=== PATIENT | male | born 1975 | race Two or more races ===

== ENCOUNTER 2018-06-22 10:32 | Emergency (ER) | payer SELFPAY ==
[~2018-06-22] VITALS: Ht 165.1 cm; Wt 65.0 kg
[2018-06-22] MEDS ORDERED: ONDANSETRON 2MG/ML, 2ML ONE (11:15)
[2018-06-22] MEDS ORDERED: MORPHINE SULFATE 4 MG/ML, 1ML ONE (11:15)
--- NOTE | 2018-06-22 11:24 | NUR ---
First contact with patient: Patient arrives with spouse with partial amputation right great toe, toe being held in place by shoelace. Shoelace removed by Dr. Velazquez, gauze dressing place by Dr. Velazquez with apparent hemostasis achieved. Plan of care discussed with patient and his , verbalize understanding. Patient states he is comfortable speaking Romansh. IV started, patient medicated for pain as ordered and documented, call ko place within reach with instruction for use. Continuous blood pressure and SPO2 monitoring in place.
[2018-06-22] MEDS ORDERED: morphine SULFATE 10 MG/ML, 1ML IVPush ONE (11:30)
[2018-06-22] MEDS ORDERED: DIPH,PERTUSS(ACELL),TET VAC/PF 0.5 ML IM-VACC ONE ×2 (11:30→11:38)
[2018-06-22] MEDS ORDERED: ONDANSETRON 2MG/ML, 2ML IVPush ONE (11:30)
--- NOTE | 2018-06-22 11:49 | NUR ---
Patient reports he is comfortable after pain medication administration, does not appear to be in acute distress. Gauze dressing with small amount of bloody drainage. Patient does not have any requests at this time. Call ko within reach.
[2018-06-22] MEDS ORDERED: CEFEPIME 2 GM in DEXTROSE 5% 100 ML IV ONE (12:00)
--- NOTE | 2018-06-22 12:05 | NUR ---
Cefepime not available in ER medicell, requested from pharmacy at this time.
--- NOTE | 2018-06-22 12:30 | NUR ---
Antibiotics infusing, call ko within reach, no complaints or requests at this time. Patient states the last time he ate was yesterday at 1500 and last drink was finished this morning at 1000.
[2018-06-22] MEDS ORDERED: LIDOCAINE 1%, 10ML INFIL ONE (13:00)
[2018-06-22] MEDS ORDERED: LIDOCAINE-MPF 1%, 5ML ONE (13:00)
[2018-06-22 14:07] VITALS: BP 131/84
--- NOTE | 2018-06-22 14:10 | NUR ---
Discharge instructions discussed with patient, questions answered, verbalizes understanding. Prescriptions provided with instruction for use. Patient crutches to discharge desk with his .
== END 2018-06-22 14:10 | disposition home or self-care (01) ==
LOC: ED 14:04
DX: S92.421A Displaced fracture of distal phalanx of right great toe, initial encounter for closed fracture (principal); S91.111A Laceration without foreign body of right great toe without damage to nail, initial encounter; F17.200 Nicotine dependence, unspecified, uncomplicated; W31.2XXA Contact with powered woodworking and forming machines, initial encounter; Y93.89 Activity, other specified; Y92.009 Unspecified place in unspecified non-institutional (private) residence as the place of occurrence of the external cause; Y99.8 Other external cause status
CPT/HCPCS: 12041; 29515; 73660; 90471; 90715; 96365; 96375; 99284; J2270; J2405